=== PATIENT | male | born 1955 | race Caucasian/White ===

== ENCOUNTER 2019-04-05 22:02 | Emergency (ER) | payer MEDICARE, BC ==
[~2019-04-05] VITALS: Ht 193 cm; Wt 107.3 kg
[2019-04-05 22:07] VITALS: BP 133/81
--- NOTE | 2019-04-05 22:08 | NUR ---
Dr. Urban, Dr. Cespedes and Dr. Salas at bedside to assess pt.
[2019-04-05] MEDS ORDERED: ONDA4TAB6 PO (22:37)
--- NOTE | 2019-04-05 22:49 | NUR ---
Pt is not a candidate for surgery at this time. Pt to be dc'd home but lives 3 hrs away. Spoke with nursing admitting supervisor to set up [facility] for the night.
[2019-04-05] MEDS ORDERED: HYDR-3965 PO (22:55)
[2019-04-05] MEDS ORDERED: HYDROcodone/acetaminophen 10/325mg tab PO ONE (23:00)
[2019-04-05] MEDS ORDERED: ondansetron 4mg rapidly disintigrating tab PO ONE (23:00)
[2019-04-06] MEDS ORDERED: LEVO150T8 PO (16:48)
[2019-04-06] MEDS ORDERED: MULT1TAB74 PO (16:48)
== END 2019-04-05 23:14 | disposition home or self-care (01) ==
LOC: ER 22:04
DX: K80.20 Calculus of gallbladder without cholecystitis without obstruction (principal); D69.3 Immune thrombocytopenic purpura; K74.60 Unspecified cirrhosis of liver; Z86.19 Personal history of other infectious and parasitic diseases; Z79.899 Other long term (current) drug therapy
CPT/HCPCS: 99283; J2405

== ENCOUNTER 2019-04-06 14:59 | Inpatient (IN) | payer MEDICARE, BC ==
[~2019-04-06] VITALS: Ht 193 cm; Wt 106.8 kg
[~2019-04-06 14:59] MED LIST: HYDR-3965 PO; ONDA4TAB6 PO
[2019-04-06] MEDS ORDERED: normal saline 1000ML IV soln IV ONE (15:20)
[2019-04-06] MEDS ORDERED: ondansetron/PF 4mg/2ml inj IV ONE (15:25)
[2019-04-06] MEDS ORDERED: normal saline 1000ML IV soln IVB ONE (15:25)
--- NOTE | 2019-04-06 15:42 | NUR ---
pt to ct scan .iv started for the pt. in room.
[2019-04-06] MEDS: morphine 4 MG/ML inj SYRINge IV PRN ×2 (16:01→17:10)
[2019-04-06 16:05] LABS: CLARITY,URINE CLEAR (Clear); COLOR,URINE YELLOW (Yellow); GLUCOSE, URINE NEGATIVE (Neg); KETONES,URINE 40 mg/dl (Neg); LEUKOCYTE ESTERASE ,URINE NEGATIVE (Neg); NITRITES, URINE NEGATIVE (Neg); OCCULT BLOOD,URINE MODERATE (Neg); PH,URINE 5.5 (4.8-8.0); PROTEIN,URINE NEGATIVE (Neg)
[2019-04-06 16:08] LABS: UA COLLECTION TYPE CLN CATCH MIDSTREAM
[2019-04-06 16:12] LABS: BACTERIA,URINE FEW /HPF (Neg); RBC,URINE 0-2 /HPF (0-2); SQUAMOUS EPITHELIAL CELL,UR FEW /LPF (FEW); WBC,URINE 0-4 /HPF (0-4)
[2019-04-06 16:24] LABS: BASOPHILS % (AUTO) 0.3 % (0-1); EOSINOPHILS % (AUTO) 0.2 % (0-6); HEMATOCRIT 43.7 % (42.0-52.0); HEMOGLOBIN 15.7 g/dl (14.0-17.9); LYMPHOCYTES # (AUTO) 0.3 X10'3 (1.1-4.8); LYMPHOCYTES % (AUTO) 5.7 % (21-51); MEAN CORPUSCULAR HEMOGLOBIN 34.1 PG (27.0-31.0); MEAN CORPUSCULAR HGB CONC 35.8 g/dL (33.0-36.5); MEAN CORPUSCULAR VOLUME 95.1 FL (78-98); MEAN PLATELET VOLUME 7.9 FL (7.4-10.4); MONOCYTES # (AUTO) 0.1 X10'3 (0-0.9); NEUTROPHILS # (AUTO) 5.3 X10'3 (1.8-7.7); NEUTROPHILS % (AUTO) 91.8 % (42-75); RED CELL DISTRIBUTION WIDTH 13.9 % (11.5-14.5); WHITE BLOOD COUNT 5.8 X10'3 (4.5-11.0)
[2019-04-06] MEDS ORDERED: piperacillin/tazo 3.375gm/50ml 50 ML IV ONE (16:30)
[2019-04-06 16:36] LABS: ALANINE AMINOTRANSFERASE 39 U/L (12-78); ALBUMIN 3.5 G/DL (3.4-5.0); ALKALINE PHOSPHATASE 58 IU/L (46-116); ANION GAP 11 (8-16); ASPARTATE AMINO TRANSFERASE 52 U/L (10-37); BLOOD UREA NITROGEN 11 MG/DL (7-18); BUN/CREATININE RATIO 13.9 (5.4-32.0); CALCIUM 8.7 MG/DL (8.5-10.1); CHLORIDE 101 MMOL/L (99-107); CREATININE 0.79 MG/DL (0.60-1.10); GLUCOSE 114 MG/DL (70-104); LIPASE 155 U/L (73-393); POTASSIUM 3.4 MMOL/L (3.5-5.1); SODIUM 134 MMOL/L (135-145); TOTAL CARBON DIOXIDE 22.5 MMOL/L (24-32); TOTAL PROTEIN 7.1 G/DL (6.4-8.2); eGFR > 90 ML/MIN
[2019-04-06 16:45] LABS: PARTIAL THROMBOPLASTIN TIME 31 SECONDS (22-32)
[2019-04-06] MEDS ORDERED: LEVO150T8 PO (16:48)
[2019-04-06] MEDS ORDERED: MULT1TAB74 PO (16:48)
[2019-04-06 16:53] LABS: PLATELET COUNT 49 X10'3 (140-440)
[2019-04-06] MEDS: normal saline 1000ml 1,000 ML IV SCH ×2 (17:03→19:40)
[2019-04-06] MEDS ORDERED: mag hydrox/Alum hydrox/simeth 30ml oral suspension PO PRN (17:05)
[2019-04-06] MEDS ORDERED: magnesium hydroxide 30ml (MOM) UD suspension PO PRN (17:05)
[2019-04-06] MEDS ORDERED: HYDROmorphone inj. 0.5 MG/0.5 ML DISP.SYRIN IV PRN (17:05)
[2019-04-06] MEDS ORDERED: sincalide inj 2.1 MCG in normal saline 50ml IV soln 50 ML IV PRN (17:10)
[2019-04-06] MEDS: HYDROmorphone 1 mg/ml syringe IV PRN (19:46)
[2019-04-06] MEDS: acetaminophen 325mg tablet PO PRN (19:49)
[2019-04-06 20:10] VITALS: BP 119/70
[2019-04-06] MEDS: piperacillin/tazo 3.375gm/50ml 50 ML IV SCH (23:57)
[2019-04-07] VITALS (18 sets, daily range): BP systolic 108–149; BP diastolic 53–92
[2019-04-07] MEDS: HYDROmorphone 1 mg/ml syringe IV PRN ×3 (01:18→11:44)
[2019-04-07] MEDS: ondansetron/PF 4mg/2ml inj IV PRN ×2 (04:14→11:44)
[2019-04-07 05:54] LABS: BASOPHILS % (AUTO) 0.1 % (0-1); EOSINOPHILS % (AUTO) 0.2 % (0-6); HEMATOCRIT 38.2 % (42.0-52.0); HEMOGLOBIN 13.6 g/dl (14.0-17.9); LYMPHOCYTES # (AUTO) 0.2 X10'3 (1.1-4.8); LYMPHOCYTES % (AUTO) 3.9 % (21-51); MEAN CORPUSCULAR HEMOGLOBIN 34.1 PG (27.0-31.0); MEAN CORPUSCULAR HGB CONC 35.6 g/dL (33.0-36.5); MEAN CORPUSCULAR VOLUME 95.9 FL (78-98); MEAN PLATELET VOLUME 8.4 FL (7.4-10.4); MONOCYTES # (AUTO) 0.4 X10'3 (0-0.9); NEUTROPHILS # (AUTO) 5.6 X10'3 (1.8-7.7); NEUTROPHILS % (AUTO) 88.8 % (42-75); RED BLOOD COUNT 3.98 X10'6 (4.70-6.10); WHITE BLOOD COUNT 6.3 X10'3 (4.5-11.0)
[2019-04-07] MEDS: acetaminophen 325mg tablet PO PRN (06:02)
[2019-04-07 06:07] LABS: ALANINE AMINOTRANSFERASE 62 U/L (12-78); ALBUMIN 2.8 G/DL (3.4-5.0); ALBUMIN/GLOBULIN RATIO 0.9 (1.1-1.5); ALKALINE PHOSPHATASE 39 IU/L (46-116); ANION GAP 9 (8-16); ASPARTATE AMINO TRANSFERASE 70 U/L (10-37); BILIRUBIN,TOTAL 3.8 MG/DL (0.1-1.0); BLOOD UREA NITROGEN 12 MG/DL (7-18); BUN/CREATININE RATIO 16.4 (5.4-32.0); CALCIUM 8.4 MG/DL (8.5-10.1); CHLORIDE 105 MMOL/L (99-107); CREATININE 0.73 MG/DL (0.60-1.10); GLUCOSE 102 MG/DL (70-104); POTASSIUM 3.5 MMOL/L (3.5-5.1); SODIUM 139 MMOL/L (135-145); TOTAL CARBON DIOXIDE 25.1 MMOL/L (24-32); TOTAL PROTEIN 5.9 G/DL (6.4-8.2); eGFR > 90 ML/MIN
--- NOTE | 2019-04-07 06:10 | NUR ---
Patient in room [facility]. I have received report from ADILENE Melendez and had the opportunity to ask questions and assume patient care.
--- NOTE | 2019-04-07 06:31 | NUR ---
Problems reprioritized. Patient report given, questions answered & plan of care reviewed with ADILENE Trujlilo. Addendum: 04/07/19 at 0631 by Nora Long RN Amended: Links added.
[2019-04-07 06:39] LABS: PLATELET COUNT 39 X10'3 (140-440)
[2019-04-07] MEDS: levoTHYROXINE 75mcg tablet PO SCH (06:50)
[2019-04-07] MEDS: piperacillin/tazo 3.375gm/50ml 50 ML IV SCH ×3 (09:59→23:58)
[2019-04-07] MEDS: multivitamins, therapeutics tablet PO SCH (09:59)
[2019-04-07] MEDS: normal saline 1000ml 1,000 ML IV SCH (11:45)
[2019-04-07] MEDS ORDERED: INDOCYANINE GREEN 25 MG VIAL IV STA (14:11)
[2019-04-07] MEDS ORDERED: BUPIVAcaine/PF 2.5 mg/ml (0.25%) 30ml vial ONE (15:47)
[2019-04-07] MEDS ORDERED: LIDOcaine 1% 30ml preserv. free vial ONE (15:47)
--- NOTE | 2019-04-07 17:02 | NUR ---
Patient to OR. Platelets were started. First set of vitals are in. The rest of the platelets will be finished in the OR; as well as, the FFP.
[2019-04-07] MEDS ORDERED: sevoflurane 250ml liquid IH ONE (17:14)
[2019-04-07] MEDS ORDERED: glycopyrrolate 0.2mg/ml inj ONE (17:14)
[2019-04-07] MEDS ORDERED: rocuronium 10mg/ml inj IV ONE ×2 (17:14→17:18)
[2019-04-07] MEDS ORDERED: neostigmine methylsulfate 1 MG/ML 10ml vial ONE (17:14)
[2019-04-07] MEDS ORDERED: fentaNYL/PF 50MCG/1 ML 2ML syringe ONE ×2 (17:17→18:20)
[2019-04-07] MEDS ORDERED: propofol inj 20 ML IV ONE (17:18)
[2019-04-07] MEDS ORDERED: midazolam 2 mg/2 ml injection ONE (17:18)
[2019-04-07] MEDS ORDERED: ceFOXitin 2 GM ADDVANTGE BAG 50 ML IV ONE (17:23)
--- NOTE | 2019-04-07 18:37 | NUR ---
Problems reprioritized. Patient report given, questions answered & plan of care reviewed with ADILENE Augustine.
[2019-04-07] MEDS: ringers solution, lacted 1,000 ML IV SCH (19:11)
[2019-04-07] MEDS ORDERED: meperidine/PF 25mg/ml syringe IV PRN ×3 (19:15)
[2019-04-07] MEDS ORDERED: ondansetron/PF 4mg/2ml inj IV PRN ×2 (19:15→20:10)
[2019-04-07] MEDS ORDERED: morphine 4 MG/ML inj SYRINge IV PRN (19:15)
[2019-04-07] MEDS ORDERED: albumin (Human) 5% 250ml 250 ML IV ONE ×3 (19:25)
[2019-04-07] MEDS: lactobacillus rhamnosus 10,000 MMU CELLS/CAPSULE PO SCH (20:00)
--- NOTE | 2019-04-07 20:03 | NUR ---
Received from OR via , accompanied by Anesthesiologist DR COLE and report given by Anesthesiolgist. AWAKENS TO VOICE. VITALS STABLE. STATES ABD PAIN. WILL MEDICATE. DRESSINGS DI. ALEKSANDRA WI BLOOD IN BULB. ABD SOFT.
[2019-04-07] MEDS: morphine 4 MG/ML inj SYRINge IV PRN ×2 (20:08→20:17)
[2019-04-07] MEDS ORDERED: naloxone 0.4 mg/ml inj IV PRN (20:10)
[2019-04-07] MEDS ORDERED: CADD PCA waste documentation MC PRN (20:10)
[2019-04-07 20:36] LABS: ISTAT ANION GAP 15 (8-12); ISTAT BUN 13 mg/dL (6-19); ISTAT CL 101 mmol/L (99-107); ISTAT CREATININE 0.7 mg/dL (0.8-1.3); ISTAT GLUCOSE 125 mg/dL (70-104); ISTAT HGB 8.8 g/dl (14.0-18.0); ISTAT Hct 26 %PCV (42-52); ISTAT IONIZED CALCIUM 1.11 mmol/L (1.03-1.32); ISTAT K 3.6 mmol/L (3.5-5.1); ISTAT NA 138 mmol/L (135-145); ISTAT TOTAL CO2 22 mmol/L (24-32); ISTAT eGFR > 90 ML/MIN; POC BUN/CREATININE RATIO 18.6 (5.4-32.0)
--- NOTE | 2019-04-07 20:53 | NUR ---
Report called to receiving nurse. Transferred via BED Belongings . Special Issues communicated to receiving nurse. AWAKE AND ORIENTED. VITALS STABLE. DRESSING DI. STATES PAIN IMPROVING. TO CICU RM 2010 AT THIS TIME.
[2019-04-07] MEDS: HYDROmorphone/NS 1 mg/ml CADD 50 ML IV SCH ×3 (21:00→23:00)
--- NOTE | 2019-04-07 21:00 | NUR ---
Pt arrived via bed from recovery room. Drowsy wakeful. Abdomen with transverse dressing & small amount of drainage. 3 large band aids to abdomen. Right lower abdominal bandaid with ALEKSANDRA drain is sutured in place drainage is bloody. SR temp 40 C. Oxygen at 4L NC saturation is 98%. Street cath drains renaldo colored urine, emptied for 425 ml.
[2019-04-07] MEDS ORDERED: acetaminophen 1,000mg/100ml IV 100 ML IV ONE (21:10)
--- NOTE | 2019-04-07 21:16 | NUR ---
Ofirmev given for temp.
--- NOTE | 2019-04-07 22:00 | NUR ---
Cooling measures, Ice packs & cool wash cloths applied. Room thermostat turned down. Temp 39.9
[2019-04-07 22:27] LABS: BASOPHILS % (AUTO) 0.1 % (0-1); MONOCYTES # (AUTO) 0.3 X10'3 (0-0.9)
[2019-04-07 22:57] LABS: EOSINOPHILS % (AUTO) 0.1 % (0-6); HEMATOCRIT 28.2 % (42.0-52.0); HEMOGLOBIN 10.3 g/dl (14.0-17.9); LYMPHOCYTES # (AUTO) 0.1 X10'3 (1.1-4.8); LYMPHOCYTES % (AUTO) 4.6 % (21-51); MEAN CORPUSCULAR HEMOGLOBIN 35.3 PG (27.0-31.0); MEAN CORPUSCULAR HGB CONC 36.3 g/dL (33.0-36.5); MEAN CORPUSCULAR VOLUME 97.2 FL (78-98); MEAN PLATELET VOLUME 8.3 FL (7.4-10.4); MONOCYTES % (AUTO) 9.5 % (2-12); NEUTROPHILS # (AUTO) 2.6 X10'3 (1.8-7.7); NEUTROPHILS % (AUTO) 85.7 % (42-75); RED BLOOD COUNT 2.91 X10'6 (4.70-6.10); RED CELL DISTRIBUTION WIDTH 13.4 % (11.5-14.5); WHITE BLOOD COUNT 3.1 X10'3 (4.5-11.0)
[2019-04-07 23:31] LABS: PLATELET COUNT 46 X10'3 (140-440)
[2019-04-08] VITALS (25 sets, daily range): BP systolic 97–139; BP diastolic 63–78
--- NOTE | 2019-04-08 | NUR ---
Temp 37.8 cooling measures effective temp subsiding.
[2019-04-08] MEDS: ringers solution, lacted 1,000 ML IV SCH (00:04)
[2019-04-08] MEDS: normal saline 1000ml 1,000 ML IV SCH ×3 (00:18→21:12)
[2019-04-08] MEDS: HYDROmorphone/NS 1 mg/ml CADD 50 ML IV SCH ×12 (01:00→23:00)
[2019-04-08 04:36] LABS: BASOPHILS % (AUTO) 0.1 % (0-1); EOSINOPHILS % (AUTO) 0.1 % (0-6); HEMATOCRIT 29.6 % (42.0-52.0); HEMOGLOBIN 10.5 g/dl (14.0-17.9); LYMPHOCYTES # (AUTO) 0.4 X10'3 (1.1-4.8); LYMPHOCYTES % (AUTO) 11.7 % (21-51); MEAN CORPUSCULAR HGB CONC 35.6 g/dL (33.0-36.5); MEAN CORPUSCULAR VOLUME 98.1 FL (78-98); MEAN PLATELET VOLUME 9.1 FL (7.4-10.4); MONOCYTES # (AUTO) 0.5 X10'3 (0-0.9); MONOCYTES % (AUTO) 14.6 % (2-12); NEUTROPHILS # (AUTO) 2.4 X10'3 (1.8-7.7); NEUTROPHILS % (AUTO) 73.5 % (42-75); RED BLOOD COUNT 3.01 X10'6 (4.70-6.10); RED CELL DISTRIBUTION WIDTH 14.1 % (11.5-14.5); WHITE BLOOD COUNT 3.3 X10'3 (4.5-11.0)
--- NOTE | 2019-04-08 05:00 | NUR ---
Pain medication effective. Pt utilizes Dilaudid CADD pump for pain described as soreness 5/10, pain subsides to 3/10. ALEKSANDRA drains thin bloody drainage. Surgical dressing intact no new drainage. Bandaids to abdomen intact without drainage. IV sits remain patent. Patient assists with repositioning. Remains NPO AM labs pending. Remains in sinus rhythm without ectopy. Urine is renaldo with good output. Pt is in good spirits, pleasant & cooperative.
[2019-04-08 05:23] LABS: PARTIAL THROMBOPLASTIN TIME 33 SECONDS (22-32)
[2019-04-08 05:24] LABS: PLATELET COUNT 50 X10'3 (140-440)
[2019-04-08 05:55] LABS: ALANINE AMINOTRANSFERASE 95 U/L (12-78); ALBUMIN 2.7 G/DL (3.4-5.0); ALKALINE PHOSPHATASE 32 IU/L (46-116); ANION GAP 6 (8-16); ASPARTATE AMINO TRANSFERASE 98 U/L (10-37); BILIRUBIN,TOTAL 2.1 MG/DL (0.1-1.0); BLOOD UREA NITROGEN 11 MG/DL (7-18); CALCIUM 7.4 MG/DL (8.5-10.1); CHLORIDE 108 MMOL/L (99-107); CREATININE 0.61 MG/DL (0.60-1.10); GLUCOSE 111 MG/DL (70-104); MAGNESIUM 1.7 MG/DL (1.5-2.4); PHOSPHORUS 2.1 MG/DL (2.3-4.5); POTASSIUM 3.7 MMOL/L (3.5-5.1); SODIUM 142 MMOL/L (135-145); TOTAL CARBON DIOXIDE 27.8 MMOL/L (24-32); TOTAL PROTEIN 5.3 G/DL (6.4-8.2); eGFR > 90 ML/MIN
--- NOTE | 2019-04-08 06:15 | NUR ---
Patient in room CICU 2010. I have received report from fast food shift lead and had the opportunity to ask questions and assume patient care.
--- NOTE | 2019-04-08 06:30 | NUR ---
Problems reprioritized. Patient report given, questions answered & plan of care reviewed with Day shift RN.
[2019-04-08] MEDS: piperacillin/tazo 3.375gm/50ml 50 ML IV SCH ×2 (07:23→15:46)
[2019-04-08] MEDS: levoTHYROXINE sod inj. 100mcg/5 ml vial IV SCH (07:24)
[2019-04-08] MEDS: lactobacillus rhamnosus 10,000 MMU CELLS/CAPSULE PO SCH ×2 (08:00→20:44)
[2019-04-08] MEDS: multivitamins, therapeutics tablet PO SCH (08:00)
[2019-04-08] MEDS: polyvinyl alcohol ophthalmic drops 15ml bottle EACHEYE PRN ×2 (08:43→21:17)
[2019-04-08] MEDS ORDERED: acetaminophen 120MG suppository, rectal RC ONE (09:30)
[2019-04-08 09:37] LABS: HEMATOCRIT 28.9 % (42.0-52.0); HEMOGLOBIN 10.3 g/dl (14.0-17.9); MEAN CORPUSCULAR HEMOGLOBIN 34.1 PG (27.0-31.0); MEAN CORPUSCULAR HGB CONC 35.4 g/dL (33.0-36.5); MEAN CORPUSCULAR VOLUME 96.2 FL (78-98); MEAN PLATELET VOLUME 8.2 FL (7.4-10.4); PLATELET COUNT 51 X10'3 (140-440); RED BLOOD COUNT 3.01 X10'6 (4.70-6.10); RED CELL DISTRIBUTION WIDTH 14.1 % (11.5-14.5); WHITE BLOOD COUNT 2.8 X10'3 (4.5-11.0)
[2019-04-08] MEDS ORDERED: acetaminophen 650mg rectal suppository RC ONE (09:50)
[2019-04-08 12:48] LABS: MEAN CORPUSCULAR HEMOGLOBIN 34.7 PG (27.0-31.0); MEAN CORPUSCULAR HGB CONC 35.8 g/dL (33.0-36.5); MEAN CORPUSCULAR VOLUME 96.9 FL (78-98); MEAN PLATELET VOLUME 8.2 FL (7.4-10.4); PLATELET COUNT 53 X10'3 (140-440); RED BLOOD COUNT 2.89 X10'6 (4.70-6.10); RED CELL DISTRIBUTION WIDTH 13.7 % (11.5-14.5); WHITE BLOOD COUNT 2.6 X10'3 (4.5-11.0)
[2019-04-08] MEDS: metroNIDAZOLE-Flagyl 500mg/NS 100 ML IV SCH ×2 (15:43→23:33)
--- NOTE | 2019-04-08 18:04 | NUR ---
Problems reprioritized. Patient report given, questions answered & plan of care reviewed with oncomingl shift.
--- NOTE | 2019-04-08 18:10 | NUR ---
Patient in room CICU 2010. I have received report and had the opportunity to ask questions and assume patient care. Pt received in good spirits tolerating liquid diet. Abdominal dressing is clean & dry. ALEKSANDRA drain with thin bloody drainage. Band aids to abdomen are clean & dry. Pt is voiding freely Street is out. On oxygen at 2L NC saturating 95%. IV's x2 right AC & left wrist both are patent with IVF infusing. No distress pt utilizes Dilaudid CADD pump for incisional pain.
[2019-04-08] MEDS: ondansetron/PF 4mg/2ml inj IV PRN (19:18)
--- NOTE | 2019-04-08 19:20 | NUR ---
Zofran given for nausea.
--- NOTE | 2019-04-08 19:45 | NUR ---
Nausea has subsided no further C/O.
[2019-04-08] MEDS ORDERED: proCHLORperazine 10 MG/2 ml inj IV ONE (21:00)
[2019-04-09] VITALS (24 sets, daily range): BP systolic 113–136; BP diastolic 65–81
--- NOTE | 2019-04-09 | NUR ---
ALEKSANDRA drain with thin bloody secretions. Abdominal dressing remains clean & dry.
[2019-04-09] MEDS: piperacillin/tazo 3.375gm/50ml 50 ML IV SCH ×3 (00:05→15:42)
[2019-04-09] MEDS: HYDROmorphone/NS 1 mg/ml CADD 50 ML IV SCH ×5 (03:00→11:00)
--- NOTE | 2019-04-09 04:00 | NUR ---
Asleep resting soundly. No distress.
--- NOTE | 2019-04-09 05:32 | NUR ---
Slept for short intervals during the night. Dilaudid/CADD pump for pain with pain relief at 5/10 for soreness to incisional site.Eddie drained 330ml. AM labs are pending. Pt has voided during the night via urinal & standing at bedside. Is active in bed and repositions self ad dasha. IV sites remain patent.
[2019-04-09 06:04] LABS: PARTIAL THROMBOPLASTIN TIME 33 SECONDS (22-32)
[2019-04-09 06:09] LABS: ALANINE AMINOTRANSFERASE 87 U/L (12-78); ALBUMIN 2.5 G/DL (3.4-5.0); ALBUMIN/GLOBULIN RATIO 0.9 (1.1-1.5); ALKALINE PHOSPHATASE 33 IU/L (46-116); ANION GAP 4 (8-16); ASPARTATE AMINO TRANSFERASE 75 U/L (10-37); BILIRUBIN,TOTAL 1.6 MG/DL (0.1-1.0); BLOOD UREA NITROGEN 8 MG/DL (7-18); BUN/CREATININE RATIO 14.8 (5.4-32.0); CALCIUM 7.7 MG/DL (8.5-10.1); CHLORIDE 106 MMOL/L (99-107); CREATININE 0.54 MG/DL (0.60-1.10); GLUCOSE 101 MG/DL (70-104); MAGNESIUM 1.8 MG/DL (1.5-2.4); PHOSPHORUS 1.4 MG/DL (2.3-4.5); POTASSIUM 3.3 MMOL/L (3.5-5.1); SODIUM 138 MMOL/L (135-145); TOTAL CARBON DIOXIDE 28.4 MMOL/L (24-32); TOTAL PROTEIN 5.4 G/DL (6.4-8.2); eGFR > 90 ML/MIN
--- NOTE | 2019-04-09 06:44 | NUR ---
Problems reprioritized. Patient report given, questions answered & plan of care reviewed with Day shift RN.
[2019-04-09 07:39] LABS: BASOPHILS % (AUTO) 0.2 % (0-1); EOSINOPHILS # (AUTO) 0.1 X10'3 (0-0.9); EOSINOPHILS % (AUTO) 2.1 % (0-6); HEMATOCRIT 28.5 % (42.0-52.0); HEMOGLOBIN 10.2 g/dl (14.0-17.9); LYMPHOCYTES # (AUTO) 0.4 X10'3 (1.1-4.8); LYMPHOCYTES % (AUTO) 11.9 % (21-51); MEAN CORPUSCULAR HGB CONC 35.9 g/dL (33.0-36.5); MEAN CORPUSCULAR VOLUME 94.7 FL (78-98); MEAN PLATELET VOLUME 8.4 FL (7.4-10.4); MONOCYTES # (AUTO) 0.4 X10'3 (0-0.9); MONOCYTES % (AUTO) 14.5 % (2-12); NEUTROPHILS # (AUTO) 2.2 X10'3 (1.8-7.7); NEUTROPHILS % (AUTO) 71.3 % (42-75); PLATELET COUNT 57 X10'3 (140-440); RED BLOOD COUNT 3.01 X10'6 (4.70-6.10); RED CELL DISTRIBUTION WIDTH 13.5 % (11.5-14.5)
[2019-04-09] MEDS: metroNIDAZOLE-Flagyl 500mg/NS 100 ML IV SCH ×3 (08:20→23:54)
[2019-04-09] MEDS: multivitamins, therapeutics tablet PO SCH (08:20)
[2019-04-09] MEDS: lactobacillus rhamnosus 10,000 MMU CELLS/CAPSULE PO SCH (08:20)
[2019-04-09] MEDS: levoTHYROXINE sod inj. 100mcg/5 ml vial IV SCH (08:39)
[2019-04-09 08:41] LABS: ANISOCYTOSIS 1+; PLATELET ESTIMATE DECREASED; TOTAL CELLS COUNTED 100
--- NOTE | 2019-04-09 12:14 | NUR ---
IV removed from right arm per order. pt tolerated well. Dr. Zendejas evaluated pt and removed dressings. 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
--- NOTE | 2019-04-09 15:02 | NUR ---
recieved report on patient
--- NOTE | 2019-04-09 15:34 | NUR ---
Pt transferred to PCU, 3016B. Pt in bed. Equipment will be obtained to do 24 hour urine collection
[2019-04-09] MEDS: oxyCODONE/APAP 10/325mg tablet PO PRN ×2 (15:42→22:44)
--- NOTE | 2019-04-09 18:15 | NUR ---
Patient in room CICU 2010. I have received report from Danilo HEAD and had the opportunity to ask questions and assume patient care. Pt remains in room 2011 CICU. Asleep at shift change. No distress. Right lower abdominal ALEKSANDRA is sutured in place. Anneliese to surgical incisions. On oxygen at 2L/NC with saturation 94-97%. IV is patent to left wrist. Remains in sinus rhythm. No distress.
--- NOTE | 2019-04-09 19:30 | NUR ---
Pt stood at bedside to void, Able to fully bear weight, sat in chair and brushed teeth and assisted in bathing self. Linen/ gown changed. Pt returned to bed. Tolerated activity well.
[2019-04-10] VITALS (22 sets, daily range): BP systolic 115–143; BP diastolic 64–83
[2019-04-10] MEDS: piperacillin/tazo 3.375gm/50ml 50 ML IV SCH ×2 (00:56→08:24)
[2019-04-10] MEDS: lactobacillus rhamnosus 10,000 MMU CELLS/CAPSULE PO SCH ×3 (00:58→20:17)
[2019-04-10] MEDS ORDERED: HYDROmorphone inj. 0.5 MG/0.5 ML DISP.SYRIN IV ONE (01:45)
--- NOTE | 2019-04-10 01:45 | NUR ---
INTERNATIONAL TRADE MANAGER called regarding patients C/O recurrent pain & request for pain meds.Orders received. Addendum: 04/10/19 at 0342 by Caridad Rodriguez RN Physicians phlebotomist lab assistant called, August Aron. Not INTERNATIONAL TRADE MANAGER.
[2019-04-10 06:14] LABS: PARTIAL THROMBOPLASTIN TIME 33 SECONDS (22-32)
--- NOTE | 2019-04-10 06:20 | NUR ---
Problems reprioritized. Patient report given, questions answered & plan of care reviewed with Danilo HEAD.
[2019-04-10] MEDS: levoTHYROXINE 75mcg tablet PO SCH (06:42)
[2019-04-10 06:44] LABS: ALANINE AMINOTRANSFERASE 71 U/L (12-78); ALBUMIN 2.4 G/DL (3.4-5.0); ALBUMIN/GLOBULIN RATIO 0.9 (1.1-1.5); ALKALINE PHOSPHATASE 35 IU/L (46-116); ANION GAP 3 (8-16); ASPARTATE AMINO TRANSFERASE 67 U/L (10-37); BILIRUBIN,TOTAL 1.2 MG/DL (0.1-1.0); BLOOD UREA NITROGEN 4 MG/DL (7-18); BUN/CREATININE RATIO 6.6 (5.4-32.0); CALCIUM 7.8 MG/DL (8.5-10.1); CHLORIDE 104 MMOL/L (99-107); CREATININE 0.61 MG/DL (0.60-1.10); GLUCOSE 118 MG/DL (70-104); MAGNESIUM 1.7 MG/DL (1.5-2.4); PHOSPHORUS 1.6 MG/DL (2.3-4.5); SODIUM 139 MMOL/L (135-145); TOTAL CARBON DIOXIDE 32.1 MMOL/L (24-32); TOTAL PROTEIN 5.2 G/DL (6.4-8.2); eGFR > 90 ML/MIN
[2019-04-10] MEDS: metroNIDAZOLE-Flagyl 500mg/NS 100 ML IV SCH ×3 (07:11→23:47)
[2019-04-10] MEDS: multivitamins, therapeutics tablet PO SCH (07:11)
[2019-04-10 07:18] LABS: BASOPHILS % (AUTO) 0.7 % (0-1); EOSINOPHILS # (AUTO) 0.1 X10'3 (0-0.9); EOSINOPHILS % (AUTO) 4.1 % (0-6); HEMATOCRIT 26.9 % (42.0-52.0); HEMOGLOBIN 9.8 g/dl (14.0-17.9); LYMPHOCYTES # (AUTO) 0.4 X10'3 (1.1-4.8); LYMPHOCYTES % (AUTO) 16.4 % (21-51); MEAN CORPUSCULAR HEMOGLOBIN 33.7 PG (27.0-31.0); MEAN CORPUSCULAR HGB CONC 36.3 g/dL (33.0-36.5); MEAN PLATELET VOLUME 8.5 FL (7.4-10.4); MONOCYTES # (AUTO) 0.4 X10'3 (0-0.9); MONOCYTES % (AUTO) 16.7 % (2-12); NEUTROPHILS # (AUTO) 1.7 X10'3 (1.8-7.7); NEUTROPHILS % (AUTO) 62.1 % (42-75); PLATELET COUNT 56 X10'3 (140-440); RED BLOOD COUNT 2.89 X10'6 (4.70-6.10); RED CELL DISTRIBUTION WIDTH 13.6 % (11.5-14.5); WHITE BLOOD COUNT 2.7 X10'3 (4.5-11.0)
[2019-04-10] MEDS: CefTRIAXone 2gm/D5W 50ml 50 ML IV SCH (09:54)
[2019-04-10 14:53] LABS: PLATELET ESTIMATE DECREASED; TOTAL CELLS COUNTED 100
[2019-04-10 14:54] LABS: ANISOCYTOSIS 1+; SPHEROCYTES FEW
[2019-04-10] MEDS: HYDROmorphone 1 mg/ml syringe IV PRN ×2 (15:06→23:20)
--- NOTE | 2019-04-10 18:15 | NUR ---
Patient in room CICU 2010. I have received report from Danilo HEAD and had the opportunity to ask questions and assume patient care. Pt received awake alert & oriented. Saturating 99% on 2L/oxygen via NC. Oxygen turned down to 1L/M at this time with saturations 96-97%. Pt is pleasant & in good spirits. Right abdominal transverse incision is approximated with frankie in place no bleeding. Right lower quadrant ALEKSANDRA drain is sutured in place with frankie to incision drain emptied for 20 ml pale green/ brown fluid. Abdomen with two other incision sites post laparoscopic attempt, both incisional sites are approximated with frankie. Abdomen is large soft/distended with active BS.IV to left wrist is patent without infiltration/redness. Dinner tray now served.
[2019-04-10] MEDS: oxyCODONE/APAP 10/325mg tablet PO PRN (19:30)
[2019-04-10] MEDS ORDERED: potassium Cl 20 mEq SR tablet PO STA (19:32)
--- NOTE | 2019-04-10 20:00 | NUR ---
Placed on room air with oxygen saturation 95-96%. No distress. ALEKSANDRA drain fluid is thin yellow/brown/red colored. Pts at bedside. No distress.
--- NOTE | 2019-04-10 20:42 | NUR ---
Problems reprioritized. Patient report given, questions answered & plan of care reviewed with Kyle HEAD. Pt is stable for transfer T 98.3 P 70 RR18 Oxygen saturation is 97% Incisional pain is subsiding post pain medication pain, dull pain is now 5/7.
--- NOTE | 2019-04-10 21:00 | NUR ---
Pt taken in wheelchair to room 355 B. Accompanied by & RN. All belongings taken. Stable transfer.
--- NOTE | 2019-04-10 21:10 | NUR ---
Received report([id number]) from SACHI Mclean RN, patient was transported via wheelchair with at side, belongings, and RN transporting.
[2019-04-11] VITALS (17 sets, daily range): BP systolic 122–142; BP diastolic 63–89
--- NOTE | 2019-04-11 01:09 | NUR ---
I agree with the the interventions, outcomes, and plan of care for that the nurse prior to transfer checked off on.
[2019-04-11] MEDS: oxyCODONE/APAP 10/325mg tablet PO PRN ×2 (03:31→09:52)
[2019-04-11 06:05] LABS: ALANINE AMINOTRANSFERASE 63 U/L (12-78); ALBUMIN 2.9 G/DL (3.4-5.0); ALBUMIN/GLOBULIN RATIO 0.9 (1.1-1.5); ALKALINE PHOSPHATASE 45 IU/L (46-116); ANION GAP 7 (8-16); ASPARTATE AMINO TRANSFERASE 59 U/L (10-37); BILIRUBIN,TOTAL 1.5 MG/DL (0.1-1.0); BLOOD UREA NITROGEN 6 MG/DL (7-18); BUN/CREATININE RATIO 10.5 (5.4-32.0); CALCIUM 8.4 MG/DL (8.5-10.1); CHLORIDE 104 MMOL/L (99-107); CREATININE 0.57 MG/DL (0.60-1.10); GLUCOSE 103 MG/DL (70-104); MAGNESIUM 1.7 MG/DL (1.5-2.4); PHOSPHORUS 2.4 MG/DL (2.3-4.5); SODIUM 139 MMOL/L (135-145); TOTAL CARBON DIOXIDE 28.5 MMOL/L (24-32); eGFR > 90 ML/MIN
[2019-04-11 06:10] LABS: PARTIAL THROMBOPLASTIN TIME 31 SECONDS (22-32)
--- NOTE | 2019-04-11 06:15 | NUR ---
Patient in room [facility] 355. I have received report from ADILENE Jauregui and had the opportunity to ask questions and assume patient care.
--- NOTE | 2019-04-11 06:33 | NUR ---
Problems reprioritized. Patient report given, questions answered & plan of care reviewed with ADILENE Trujillo.
[2019-04-11 06:34] LABS: BASOPHILS % (AUTO) 0.5 % (0-1); EOSINOPHILS # (AUTO) 0.2 X10'3 (0-0.9); EOSINOPHILS % (AUTO) 3.4 % (0-6); HEMATOCRIT 30.8 % (42.0-52.0); HEMOGLOBIN 11.1 g/dl (14.0-17.9); LYMPHOCYTES # (AUTO) 0.8 X10'3 (1.1-4.8); LYMPHOCYTES % (AUTO) 17.4 % (21-51); MEAN CORPUSCULAR HEMOGLOBIN 33.3 PG (27.0-31.0); MEAN CORPUSCULAR VOLUME 92.6 FL (78-98); MEAN PLATELET VOLUME 8.3 FL (7.4-10.4); MONOCYTES # (AUTO) 0.6 X10'3 (0-0.9); MONOCYTES % (AUTO) 13.9 % (2-12); NEUTROPHILS % (AUTO) 64.8 % (42-75); PLATELET COUNT 83 X10'3 (140-440); RED BLOOD COUNT 3.33 X10'6 (4.70-6.10); RED CELL DISTRIBUTION WIDTH 13.7 % (11.5-14.5); WHITE BLOOD COUNT 4.7 X10'3 (4.5-11.0)
[2019-04-11] MEDS: levoTHYROXINE 75mcg tablet PO SCH (08:17)
[2019-04-11] MEDS: multivitamins, therapeutics tablet PO SCH (08:18)
[2019-04-11] MEDS: lactobacillus rhamnosus 10,000 MMU CELLS/CAPSULE PO SCH ×2 (08:18→19:49)
[2019-04-11] MEDS: metroNIDAZOLE-Flagyl 500mg/NS 100 ML IV SCH ×2 (08:18→16:16)
[2019-04-11] MEDS ORDERED: magnesium Cl slow-release 64mg tablet PO PRN (08:30)
[2019-04-11] MEDS ORDERED: magnesium 4gm in 100ml NS 100 ML IV PRN (08:30)
[2019-04-11] MEDS ORDERED: magnesium 2GM in 50ml NS 50 ML IV PRN (08:30)
[2019-04-11] MEDS ORDERED: potassium Cl 20 mEq SR tablet PO PRN (08:30)
[2019-04-11] MEDS ORDERED: potassium CL 10mEq/100ml bag 100 ML IV PRN (08:30)
[2019-04-11] MEDS: CefTRIAXone 2gm/D5W 50ml 50 ML IV SCH (09:52)
[2019-04-11] MEDS: potassium Cl 20 mEq SR tablet PO PRN ×2 (09:52→21:43)
[2019-04-11] MEDS ORDERED: fentaNYL/PF 50MCG/1 ML 2ML syringe ONE ×2 (12:49→13:05)
[2019-04-11] MEDS ORDERED: glucagon, human recombinant 1mg kit ONE (12:50)
[2019-04-11] MEDS ORDERED: diphenhydrAMINE 50 mg/ml inj ONE (12:50)
[2019-04-11] MEDS ORDERED: MIDAZolam 5mg/5ml vial ONE (12:50)
[2019-04-11] MEDS ORDERED: iohexol 300 MG/1 ML 50ml polymer ONE (12:51)
[2019-04-11] MEDS ORDERED: LIDOcaine Viscous 15ml cup ONE (13:41)
--- NOTE | 2019-04-11 14:29 | NUR ---
Initial: Pt admit with sepsis secondary to acute cholecystitis. Pt s/p open cholecystectomy which is improving and blood cultures positive for Klebsiella oxytoca, pt receiving abx tx per MD notes. Pt with active regular diet order however being documented as NPO for GI procedure. LBM 04/05, pt currently with no routine bowel care. Would benefit once PO diet is advanced. Will continue to follow. Recommendations: 1) Advance to low fat diet as medically indicated 2) Monitor need for ONS with diet advancement 3) Routine bowel care 4) Wt per rx Addendum: 04/11/19 at [address] Amended: Links added.
[2019-04-11] MEDS: ESOMEPRAZOLE 40 MG VIAL IV SCH (16:16)
--- NOTE | 2019-04-11 18:10 | NUR ---
Problems reprioritized. Patient report given, questions answered & plan of care reviewed with ADILENE Jauregui.
--- NOTE | 2019-04-11 18:41 | NUR ---
Patient in room [facility] 355. I have received report from ADILENE Trujillo and had the opportunity to ask questions and assume patient care.
[2019-04-11] MEDS: normal saline 1000ml 1,000 ML IV SCH (19:49)
[2019-04-12] MEDS: metroNIDAZOLE-Flagyl 500mg/NS 100 ML IV SCH ×2 (00:07→07:51)
[2019-04-12 00:26] VITALS: BP 134/82
[2019-04-12] MEDS: oxyCODONE/APAP 10/325mg tablet PO PRN ×3 (01:45→21:34)
[2019-04-12] MEDS: potassium Cl 20 mEq SR tablet PO PRN (01:45)
[2019-04-12] MEDS: normal saline 1000ml 1,000 ML IV SCH ×2 (05:18→09:05)
[2019-04-12 05:27] LABS: PARTIAL THROMBOPLASTIN TIME 32 SECONDS (22-32)
[2019-04-12 05:38] LABS: MAGNESIUM 1.6 MG/DL (1.5-2.4); PHOSPHORUS 2.9 MG/DL (2.3-4.5)
--- NOTE | 2019-04-12 06:29 | NUR ---
Patient in room [facility] 355. I have received report from Juventino HEAD and had the opportunity to ask questions and assume patient care.
--- NOTE | 2019-04-12 06:31 | NUR ---
Problems reprioritized. Patient report given, questions answered & plan of care reviewed with ADILENE Lipscomb.
[2019-04-12 07:05] VITALS: BP 124/68
[2019-04-12] MEDS: levoTHYROXINE 75mcg tablet PO SCH (07:51)
[2019-04-12] MEDS: ESOMEPRAZOLE 40 MG VIAL IV SCH (07:51)
[2019-04-12] MEDS: multivitamins, therapeutics tablet PO SCH (07:51)
[2019-04-12] MEDS: lactobacillus rhamnosus 10,000 MMU CELLS/CAPSULE PO SCH ×2 (07:51→20:32)
[2019-04-12] MEDS: CefTRIAXone 2gm/D5W 50ml 50 ML IV SCH (09:01)
[2019-04-12 10:37] LABS: ALANINE AMINOTRANSFERASE 50 U/L (12-78); ALBUMIN 2.8 G/DL (3.4-5.0); ALBUMIN/GLOBULIN RATIO 0.8 (1.1-1.5); ALKALINE PHOSPHATASE 54 IU/L (46-116); ANION GAP 7 (8-16); ASPARTATE AMINO TRANSFERASE 39 U/L (10-37); BILIRUBIN,TOTAL 1.6 MG/DL (0.1-1.0); BLOOD UREA NITROGEN 7 MG/DL (7-18); BUN/CREATININE RATIO 11.5 (5.4-32.0); CALCIUM 8.2 MG/DL (8.5-10.1); CHLORIDE 105 MMOL/L (99-107); CREATININE 0.61 MG/DL (0.60-1.10); GLUCOSE 131 MG/DL (70-104); POTASSIUM 3.6 MMOL/L (3.5-5.1); SODIUM 137 MMOL/L (135-145); TOTAL CARBON DIOXIDE 24.6 MMOL/L (24-32); TOTAL PROTEIN 6.1 G/DL (6.4-8.2); eGFR > 90 ML/MIN
[2019-04-12 10:43] LABS: BASOPHILS % (AUTO) 0.3 % (0-1); EOSINOPHILS # (AUTO) 0.2 X10'3 (0-0.9); EOSINOPHILS % (AUTO) 3.6 % (0-6); HEMATOCRIT 31.3 % (42.0-52.0); HEMOGLOBIN 11.4 g/dl (14.0-17.9); LYMPHOCYTES % (AUTO) 16.8 % (21-51); MEAN CORPUSCULAR HEMOGLOBIN 34.3 PG (27.0-31.0); MEAN CORPUSCULAR HGB CONC 36.4 g/dL (33.0-36.5); MEAN CORPUSCULAR VOLUME 94.4 FL (78-98); MEAN PLATELET VOLUME 7.7 FL (7.4-10.4); MONOCYTES # (AUTO) 0.7 X10'3 (0-0.9); MONOCYTES % (AUTO) 11.6 % (2-12); NEUTROPHILS % (AUTO) 67.7 % (42-75); PLATELET COUNT 109 X10'3 (140-440); RED BLOOD COUNT 3.32 X10'6 (4.70-6.10); WHITE BLOOD COUNT 5.9 X10'3 (4.5-11.0)
[2019-04-12 11:09] VITALS: BP 115/67
[2019-04-12 12:02] LABS: PLATELET ESTIMATE DECREASED
[2019-04-12 12:03] LABS: POLYCHROMASIA FEW
[2019-04-12 12:04] LABS: SPHEROCYTES FEW
[2019-04-12] MEDS: HYDROmorphone 1 mg/ml syringe IV PRN (16:46)
--- NOTE | 2019-04-12 18:28 | NUR ---
Problems reprioritized. Patient report given, questions answered & plan of care reviewed with Juventino HEAD.
--- NOTE | 2019-04-12 18:43 | NUR ---
Patient in room [facility] 355. I have received report from ADILENE Lipscomb and had the opportunity to ask questions and assume patient care.
[2019-04-12 23:54] VITALS: BP 135/71
[2019-04-13] MEDS: oxyCODONE/APAP 10/325mg tablet PO PRN ×3 (03:37→21:56)
[2019-04-13 04:52] LABS: BASOPHILS % (AUTO) 0.4 % (0-1); EOSINOPHILS # (AUTO) 0.2 X10'3 (0-0.9); EOSINOPHILS % (AUTO) 3.9 % (0-6); HEMATOCRIT 28.5 % (42.0-52.0); HEMOGLOBIN 10.3 g/dl (14.0-17.9); LYMPHOCYTES % (AUTO) 18.4 % (21-51); MEAN CORPUSCULAR HEMOGLOBIN 34.1 PG (27.0-31.0); MEAN CORPUSCULAR HGB CONC 36.3 g/dL (33.0-36.5); MEAN CORPUSCULAR VOLUME 94.1 FL (78-98); MEAN PLATELET VOLUME 7.7 FL (7.4-10.4); MONOCYTES # (AUTO) 0.6 X10'3 (0-0.9); MONOCYTES % (AUTO) 10.5 % (2-12); NEUTROPHILS # (AUTO) 3.5 X10'3 (1.8-7.7); NEUTROPHILS % (AUTO) 66.8 % (42-75); PLATELET COUNT 106 X10'3 (140-440); RED BLOOD COUNT 3.03 X10'6 (4.70-6.10); RED CELL DISTRIBUTION WIDTH 13.7 % (11.5-14.5); WHITE BLOOD COUNT 5.3 X10'3 (4.5-11.0)
[2019-04-13 05:21] LABS: ALANINE AMINOTRANSFERASE 42 U/L (12-78); ALBUMIN 2.6 G/DL (3.4-5.0); ALBUMIN/GLOBULIN RATIO 0.9 (1.1-1.5); ALKALINE PHOSPHATASE 48 IU/L (46-116); ANION GAP 8 (8-16); ASPARTATE AMINO TRANSFERASE 38 U/L (10-37); BILIRUBIN,TOTAL 1.2 MG/DL (0.1-1.0); BLOOD UREA NITROGEN 6 MG/DL (7-18); BUN/CREATININE RATIO 11.3 (5.4-32.0); CALCIUM 8.2 MG/DL (8.5-10.1); CHLORIDE 105 MMOL/L (99-107); CREATININE 0.53 MG/DL (0.60-1.10); GLUCOSE 87 MG/DL (70-104); MAGNESIUM 1.7 MG/DL (1.5-2.4); POTASSIUM 3.6 MMOL/L (3.5-5.1); SODIUM 138 MMOL/L (135-145); TOTAL PROTEIN 5.5 G/DL (6.4-8.2); eGFR > 90 ML/MIN
[2019-04-13 05:27] LABS: PARTIAL THROMBOPLASTIN TIME 31 SECONDS (22-32)
--- NOTE | 2019-04-13 06:46 | NUR ---
Problems reprioritized. Patient report given, questions answered & plan of care reviewed with ADILENE Owens.
--- NOTE | 2019-04-13 06:47 | NUR ---
Patient in room [facility] 355. I have received report from Juventino HEAD and had the opportunity to ask questions and assume patient care.
[2019-04-13 07:00] VITALS: BP 136/71
[2019-04-13] MEDS: ESOMEPRAZOLE 40 MG VIAL IV SCH (07:54)
[2019-04-13] MEDS: levoTHYROXINE 75mcg tablet PO SCH (07:54)
[2019-04-13] MEDS: multivitamins, therapeutics tablet PO SCH (07:54)
[2019-04-13] MEDS: lactobacillus rhamnosus 10,000 MMU CELLS/CAPSULE PO SCH ×2 (07:54→20:00)
[2019-04-13] MEDS: HYDROmorphone 1 mg/ml syringe IV PRN (08:07)
[2019-04-13 11:00] VITALS: BP 147/89
[2019-04-13 11:12] LABS: NUCLEATED RED BLOOD CELLS 1 /100WBC (0-0); TOTAL CELLS COUNTED 100
[2019-04-13 11:14] LABS: PLATELET ESTIMATE DECREASED; POLYCHROMASIA 1+; SMUDGE CELLS 1+; TOXIC GRANULATION 2+
[2019-04-13 11:15] LABS: SPHEROCYTES FEW
[2019-04-13] MEDS ORDERED: CefTRIAXone 2gm/D5W 50ml 50 ML IV ONE (13:05)
--- NOTE | 2019-04-13 18:51 | NUR ---
Problems reprioritized. Patient report given, questions answered & plan of care reviewed with Susan HEAD.
[2019-04-13 19:00] VITALS: BP 120/75
[2019-04-14] VITALS: BP 128/73
--- NOTE | 2019-04-14 04:27 | NUR ---
called and stated that pts penis has a reddened area on it, possibly eczema that was irritated by the urinal. Per this has "been a problem since ICU", informed nurse that he was told by a staff see a meteorology faculty member however we do not have one here, and they want it taken care of prior to leaving. will call during day shift and will also be here as well. Addendum: 04/14/19 at 0441 by Susan Esquivel RN Amended: Links added.
[2019-04-14] MEDS: oxyCODONE/APAP 10/325mg tablet PO PRN ×2 (04:40→10:40)
[2019-04-14 05:29] LABS: ALANINE AMINOTRANSFERASE 40 U/L (12-78); ALBUMIN 2.9 G/DL (3.4-5.0); ALBUMIN/GLOBULIN RATIO 0.9 (1.1-1.5); ALKALINE PHOSPHATASE 48 IU/L (46-116); ANION GAP 5 (8-16); ASPARTATE AMINO TRANSFERASE 36 U/L (10-37); BILIRUBIN,TOTAL 1.2 MG/DL (0.1-1.0); BLOOD UREA NITROGEN 7 MG/DL (7-18); BUN/CREATININE RATIO 9.6 (5.4-32.0); CALCIUM 8.4 MG/DL (8.5-10.1); CHLORIDE 104 MMOL/L (99-107); CREATININE 0.73 MG/DL (0.60-1.10); GLUCOSE 100 MG/DL (70-104); MAGNESIUM 1.7 MG/DL (1.5-2.4); POTASSIUM 3.3 MMOL/L (3.5-5.1); SODIUM 138 MMOL/L (135-145); TOTAL CARBON DIOXIDE 29.1 MMOL/L (24-32); eGFR > 90 ML/MIN
[2019-04-14 05:38] LABS: PARTIAL THROMBOPLASTIN TIME 29 SECONDS (22-32)
[2019-04-14 06:13] LABS: BASOPHILS % (AUTO) 0.4 % (0-1); EOSINOPHILS # (AUTO) 0.2 X10'3 (0-0.9); EOSINOPHILS % (AUTO) 2.9 % (0-6); HEMATOCRIT 30.8 % (42.0-52.0); HEMOGLOBIN 11.1 g/dl (14.0-17.9); LYMPHOCYTES % (AUTO) 15.4 % (21-51); MEAN CORPUSCULAR HEMOGLOBIN 33.6 PG (27.0-31.0); MEAN CORPUSCULAR HGB CONC 35.9 g/dL (33.0-36.5); MEAN CORPUSCULAR VOLUME 93.7 FL (78-98); MEAN PLATELET VOLUME 7.5 FL (7.4-10.4); MONOCYTES # (AUTO) 0.6 X10'3 (0-0.9); MONOCYTES % (AUTO) 9.3 % (2-12); NEUTROPHILS # (AUTO) 4.6 X10'3 (1.8-7.7); PLATELET COUNT 118 X10'3 (140-440); RED BLOOD COUNT 3.29 X10'6 (4.70-6.10); RED CELL DISTRIBUTION WIDTH 14.1 % (11.5-14.5); WHITE BLOOD COUNT 6.4 X10'3 (4.5-11.0)
--- NOTE | 2019-04-14 06:22 | NUR ---
Problems reprioritized. Patient report given, questions answered & plan of care reviewed with Sumi Parra. Addendum: 04/14/19 at 0623 by Susan Esquivel RN Amended: Links added.
[2019-04-14 06:25] LABS: PLATELET ESTIMATE DECREASED; POLYCHROMASIA 1+; SPHEROCYTES FEW
[2019-04-14] MEDS ORDERED: pantoprazole 40mg Tablet.DR PO SCH (07:30)
[2019-04-14] MEDS: multivitamins, therapeutics tablet PO SCH (09:37)
[2019-04-14] MEDS: lactobacillus rhamnosus 10,000 MMU CELLS/CAPSULE PO SCH (09:37)
[2019-04-14] MEDS: levoTHYROXINE 75mcg tablet PO SCH (09:37)
[2019-04-14] MEDS ORDERED: HYDR-4353 PO (11:47)
[2019-04-14] MEDS ORDERED: PANT40TA4 PO (11:47)
[2019-04-14] MEDS ORDERED: HYDR28CR14 TOP (11:47)
[2019-04-14] MEDS ORDERED: potassium Cl 20 mEq SR tablet PO STA (12:18)
--- NOTE | 2019-04-14 15:49 | NUR ---
PT HAS HAD ALL DISCHARGE PAPERWORK REVIEWED, HE HAS ALL MEDICATIONS PROVIDED BY [facility]. IV ANGEL'D. PT. WAITING ON HIS TO GIVE HIM A RIDE AND RENT A HOTEL ROOM ETA 2 HOURS.
--- NOTE | 2019-04-14 17:01 | NUR ---
PT'S LOCKED HER KEYS IN THE CAR. WAITING FOR [employer] TO COME ASSIST HER SO THAT THE PT. CAN DISCHARGE.
--- NOTE | 2019-04-14 17:50 | NUR ---
PT DISCHARGED IN A STAB;E CONDITION. KNOWS TO FOLLOW UP WITH [facility] FOR DRAIN AND STAPLE REMOVAL. HAS CONTACT INFORMATION. MEDICATIONS DISCUSSED. PT HAD A CHANCE TO ASK QUESTIONS. HAD MEDICATION DELIVERED BY [facility]. AWARE OF WEIGHT RESTRICTION. EDUCATED ON DIET AND ACTIVITY. PT.'S HERE TO DRIVE PT HOME. WRISTBAND ID REMOVED. PT. ESCORTED TO HIS 'S PRIVATE VEHICLE WITH HIS BELONGINGS TO GO HOME BY HOSPITAL STAFF MEMBER IN A W/C.
[2019-04-14 17:59] VITALS: BP 93/51
== END 2019-04-14 17:50 | disposition home or self-care (01) | DRG 854 ==
LOC: ER 14:59 → SUR 3N 20:19 → CICU 2S 04-07 19:37 → SUR 3N 04-10 21:11
PROVIDERS: ADMIT Family Medicine; ATTEND Family Medicine
PROC: 0FB44ZZ Excision of Gallbladder, Percutaneous Endoscopic Approach (ICD-10-PCS; 2019-04-07)
PROC: 30233K1 Transfusion of Nonautologous Frozen Plasma into Peripheral Vein, Percutaneous Approach (ICD-10-PCS; 2019-04-07)
PROC: 30233R1 Transfusion of Nonautologous Platelets into Peripheral Vein, Percutaneous Approach (ICD-10-PCS; 2019-04-07)
PROC: CF141ZZ Planar Nuclear Medicine Imaging of Gallbladder using Technetium 99m (Tc-99m) (ICD-10-PCS; 2019-04-07)
PROC: 8E0W4CZ Robotic Assisted Procedure of Trunk Region, Percutaneous Endoscopic Approach (ICD-10-PCS; 2019-04-07)
PROC: 0F944ZZ Drainage of Gallbladder, Percutaneous Endoscopic Approach (ICD-10-PCS; 2019-04-07)
PROC: 0FT40ZZ Resection of Gallbladder, Open Approach (ICD-10-PCS; principal; 2019-04-07 17:14)
PROC: 0FC98ZZ Extirpation of Matter from Common Bile Duct, Via Natural or Artificial Opening Endoscopic (ICD-10-PCS; 2019-04-11)
PROC: BF101ZZ Fluoroscopy of Bile Ducts using Low Osmolar Contrast (ICD-10-PCS; 2019-04-11)
DX: A41.59 Other Gram-negative sepsis (principal); K76.6 Portal hypertension; I85.10 Secondary esophageal varices without bleeding; K80.62 Calculus of gallbladder and bile duct with acute cholecystitis without obstruction; B18.2 Chronic viral hepatitis C; D69.59 Other secondary thrombocytopenia; E87.6 Hypokalemia; F12.90 Cannabis use, unspecified, uncomplicated; E03.9 Hypothyroidism, unspecified; D64.9 Anemia, unspecified; G89.18 Other acute postprocedural pain; K31.89 Other diseases of stomach and duodenum; K74.69 Other cirrhosis of liver; Z53.31 Laparoscopic surgical procedure converted to open procedure; Z88.6 Allergy status to analgesic agent; Z82.3 Family history of stroke; Z90.49 Acquired absence of other specified parts of digestive tract; Z79.899 Other long term (current) drug therapy
CPT/HCPCS: 36415; 43262; 43264; 71045; 74018; 74176; 78226; 80047; 80053; 81001; 82948; 83605; 83690; 83735; 84100; 84132; 84145; 84443; 85025; 85027; 85610; 85730; 86885; 86900; 86901; 86920; 87040; 87077; 87081; 87186; 88304; 93005; 96365; 96375; 99152; 99153; 99285; A4215; A4618; A4620; A6258; A7000; A9537; C1758; C1769; G0378; J0131; J0694; J0696; J1170; J1200; J1610; J2001; J2250; J2270; J2405; J2543; J2704; J2710; J2805; J3010; J3490; J7030; J7040; J7120; P9035; P9045; P9059; Q9967